=== PATIENT | male | born 1955 | race Caucasian/White ===

== ENCOUNTER 2023-11-27 08:45 | Outpatient (CLI) | payer MEDICARE, SELFPAY ==
[2023-11-27 09:01] VITALS: BMI 38.9
[2023-11-27] MEDS: IVABRADINE HCL 7.5MG TABLET *IVABRADINE+METOPROLOL REGIMINE 15 MG PO (09:17)
[2023-11-27] MEDS: METOPROLOL TARTRATE 50MG TABLET *IVABRADINE+METOPROLOL REGIMINE 50 MG PO (09:17)
[2023-11-27 09:21] VITALS: BP 122/61; PULSE 73; RESP 18; TEMP 36.6; O2SAT 96
[2023-11-27 09:30] LABS: Anion Gap 9.5 mEq/L (5-15); Blood Urea Nitrogen 31 mg/dl (9-20); Calcium 9.3 mg/dl (8.4-10.2); Carbon Dioxide 28 mmol/L (22.0-30.0); Chloride 105 mmol/L (98-107); Creatinine Clearance Estimated 120 mL/min (50-200); Estimated Glomerular Filt Rate 96 ml/min (>60); GFR (African American) 116 ML/MIN (>60); Glucose 194 mg/dl (74-100); Potassium 4.5 mmoL/L (3.5-5.1); Sodium 138 mmol/L (136-145)
[2023-11-27 10:10] VITALS: BP 126/66; PULSE 68; RESP 16; O2SAT 98
[2023-11-27] MEDS: NITROGLYCERIN 0.4MG SL TABLET 0.8 MG SL (10:10)
[2023-11-27 10:16] VITALS: BP 113/66; PULSE 61; RESP 16; O2SAT 97
[2023-11-27 10:19] VITALS: BP 130/58; PULSE 63; RESP 16; O2SAT 97
[2023-11-27 10:28] VITALS: BP 107/47; PULSE 59; RESP 16; O2SAT 97
[2023-11-27 10:44] VITALS: BP 110/60; PULSE 55; RESP 16; O2SAT 97
[2023-11-27] MEDS: IOPAMIDOL-370 (76%);100ML BOTTLE 170 ML IV (10:49)
[2023-11-27] MEDS: 0.9 % SODIUM CHLORIDE 50 ML VIAL 100 ML IV (10:49)
[2023-11-27] MEDS: SODIUM CHLORIDE 0.9% 10ML SYR (RAD ONLY) 10 ML IV (10:49)
[2023-11-27 14:53] LABS: POC Glucose,Bedside 188 (70-110)
== END 2023-11-27 10:44 | disposition home or self-care (01) ==
PROVIDERS: PCP Nurse Practitioner Family; Visit Provider Internal Medicine
DX: R94.39 Abnormal result of other cardiovascular function study (principal)
CPT/HCPCS: 75574; 80048; 82962; Q9967